=== PATIENT | female | born 1955 | race Caucasian/White ===

== ENCOUNTER 2016-07-28 08:02 | Emergency (ER) | payer OTHER ==
[~2016-07-28] VITALS: Ht 162.6 cm; Wt 56.7 kg
[2016-07-28 08:06] VITALS: BP 163/102
--- NOTE | 2016-07-28 08:58 | ED UPPER/LOWER EXTREMITY COMPL ---
See Addendum History of Present Illness General Chief Complaint: Upper Extremity Injury Stated Complaint: SHOULDER PAIM RT Source: patient Exam Limitations: no limitations Vital Signs & Intake/Output Vital Signs & Intake/Output Vital Signs Date Time Temp Pulse Resp B/P B/P Pulse O2 O2 Flow FiO2 Mean Ox Delivery Rate 07/28 0806 98.0 93 16 163/102 96 Room Air Allergies Coded Allergies: hydromorphone (Severe, SWELLING 07/28/16) morphine (Severe, SWELLING 07/28/16) diazepam (Mild, DEPRESSION 07/28/16) Reconcile Medications Bupropion HCl (Bupropion XL) 300 MG TAB.ER.24H 1 TAB PO QAM DEPRESSION ( Reported) Bupropion HCl (Bupropion XL) 150 MG TAB.ER.24H 1 TAB PO QAM DEPRESSION ( Reported) Oxycodone HCl/Acetaminophen (Percocet 5-325 MG Tablet) 5 MG-325 MG TABLET 1 TAB PO Q6HR PRN PAIN Sertraline HCl 50 MG TABLET 1 TAB PO DAILY MENTAL HEALTH (Reported) Trazodone HCl 50 MG TABLET 1.5 TAB PO QPM SLEEP (Reported) Triage Note: PT STATES SHE DISLOCATED HER RIGHT SHOULDER LAST EVENING. PT STATES SHE TRIPPED OVER HER DOGS TOY AND LANDED ON HER SHOULDER. Triage Nurses Notes Reviewed? yes Onset: Abrupt Duration: day(s): (1) Timing: single episode today Severity: moderate Severity Numbers: 8 Pain/Injury Location: Right: Shoulder. Method of Injury: fall Modifying Factors: Improves With: immobilization. Worsens With: movement. HPI: Patient is a 60-year-old female presenting to the emergency department chief complaint of right shoulder pain after trip and fall last night. Patient reports that she accidentally tripped over her dog's toys and landed directly on the right shoulder. No head injury. No LOC. Denies neck pain or back pain. Pain in the shoulders moderate, 8 on a 10 worse with any range of motion and palpation. Denies taking anything for pain prior to arrival. No numbness or tingling. The pain does not radiate down the arm. Denies any right elbow, right wrist or hand pain. Denies chest pain palpitations shortness of breath no nausea or vomiting fevers or chills. Pain was not improving this morning so she decided to come in for evaluation. (NEVAEH MURGUIA) Past History Travel History Traveled to [place] past 21 day No Medical History Any Pertinent Medical History? see below for history Neurological: NONE EENT: NONE Cardiovascular: NONE Respiratory: NONE Gastrointestinal: NONE Hepatic: NONE Renal: nephrolithiasis, KIDNEY INFECTION Musculoskeletal: R/L WRIST FX Psychiatric: alcohol dependence, depression Endocrine: NONE Blood Disorders: NONE Cancer(s): NONE Tetanus Vaccine: 02/18/15 Surgical History Surgical History: non-contributory Psychosocial History Who do you live with Spouse What is your primary language Hebrew Tobacco Use: Current Daily Use Daily Tobacco Use Amount/Type: => 5 Cigarettes daily ETOH Use: denies use Illicit Drug Use: denies illicit drug use Family History Hx Contributory? No (NEVAEH MURGUIA) Review of Systems Review of Systems Constitutional: Reports: no symptoms. Comments Review of systems: See HPI, All other systems negative. Constitutional, no chills fever or weight loss HEENT: No visual changes no sore throat no congestion Cardiovascular: No chest pain ,palpitation Skin, no jaundice no rashes Respiratory: No dyspnea cough sputum or hemoptysis GI: No nausea no vomiting Muscle skeletal: no back pain, no neck pain, Neurologic: No numbness no confusion, no headache Psych: No stress anxiety Immunology: No splenectomy or history of AIDS (NEVAEH MURGUIA) Physical Exam Physical Exam General Appearance: well developed/nourished, no apparent distress, alert, awake , comfortable Comments: Well-developed well-nourished person in no acute distress HEENT: Nose is atraumatic. Neck: Supple, no C-spine tenderness. Full range of motion. Back: Nontender,Full range of motion Cardiovascular: Regular rate and rhythms no murmurs rubs or gallops, normal JVP Respiratory: Chest nontender. No respiratory distress.breath sounds clear to auscultation bilaterally Extremity: Tender to palpation over the anterior posterior aspect of the right shoulder, significant limited range of motion of right upper extremity secondary to pain. Pain at approximately 15 of right shoulder abduction. Pain to palpation of the right proximal humerus. No clavicle pain bilaterally. Full range of motion of right wrist, hand, elbow. [employer] Operator strength is equal and symmetric bilaterally. Radial pulses are 2+ bilaterally. Neuro: Alert oriented x3, motor sensory normal and upper joints bilaterally. Skin: No appreciable rash on exposed skin, skin is warm and dry. Psych: Mood and affect is normal, memory and judgment is normal. (NEVAEH MURGUIA) Progress Differential Diagnosis: contusion, dislocation, fracture, sprain, tendon injury Plan of Care: Orders Procedure Date/time Status Durable Medical Equipment 07/29 931 Active Diagnostic Imaging: Viewed by Me: Radiology Read. Discussed w/RAD: Radiology Read. Radiology Impression: PROXIMAL HUMERAL FRACTURE, DISPLACED, HUMERUS: PROXIMAL HUMERAL FX Comments: Spoke with Alyssa Calloway MD, patient will follow-up with orthopedic in the office this week. Sent home in sling. (NEVAEH MURGUIA) Departure Departure Time of Disposition: 901 Disposition: HOME OR SELF CARE Condition: Stable Clinical Impression Primary Impression: Proximal humeral fracture Qualifiers: Encounter type: initial encounter Fracture type: closed Fracture morphology: unspecified fracture morphology Laterality: right Qualified Code: S42.201A - Unspecified fracture of upper end of right humerus, initial encounter for closed fracture Referrals: HOWARD BROWN APRN (PCP/Family) ROSA ISELA WONG,ALYSSA Additional Instructions: Follow-up with orthopedics call tomorrow to make an appointment. Wear sling for comfort. Apply ice to affected area. Return for worsening symptoms or concerns. Departure Forms: Customer Survey General Discharge Information Prescriptions: Current Visit Scripts Oxycodone HCl/Acetaminophen (Percocet 5-325 MG Tablet) 1 TAB PO Q6HR PRN PAIN #12 TAB (NEVAEH MURGUIA) PA/CASE MAKER Co-Sign Statement Statement: ED Attending supervision documentation- [] I saw and evaluated the patient. I have also reviewed all the pertinent lab results and diagnostic results. I agree with the findings and the plan of care as documented in the PA's/CASE MAKER's documentation. [X] I have reviewed the ED Record and agree with the PA's/CASE MAKER's documentation. [] Additions or exceptions (if any) to the PAs/CASE MAKER's note and plan are summarized below: [] (BRIANDA WONG,BINDU Mcgowan) Procedures Splinting Location: RIGHT SHOULDER Manual Alignment Performed: No Pre-Made Type: SLING Splint: SLING/SHOULDER IMMOBILIZER Splint Applied By: splint applied by other (NURSING) Pre-Proc Neuro Vasc Exam: normal Post-Proc Neuro Vasc Exam: normal Progress: Patient tolerated procedure well. (KELSIE FINNEGAN,NEVAEH)
[2016-07-28] MEDS ORDERED: PERCOCET 5-3251 EACH PO (09:10)
[2016-07-28] MEDS ORDERED: SERTRALINE HCL50 MG PO (09:33)
[2016-07-28] MEDS ORDERED: TRAZODONE HCL50 M1 PO (09:34)
[2016-07-28] MEDS ORDERED: BUPROPION XL300 M1 PO (09:34)
[2016-07-28] MEDS ORDERED: BUPROPION XL150 MG PO (09:35)
--- NOTE | 2016-07-28 10:23 | RADIOLOGY REPORT ---
EXAMINATION: XR HUMERUS, RIGHT XR SHOULDER, RIGHT CLINICAL INFORMATION: History of recent fall with inability to move the arm. Evaluate for fracture and dislocation. COMPARISON: None TECHNIQUE: Right shoulder, 3 views Right humerus, 2 views FINDINGS: Right shoulder: Bone density appears diffusely decreased. The clavicle and acromioclavicular joint are intact. There is a fracture of the humeral neck and greater tuberosity with > 1 cm of cortical offset at the medial humeral head-neck junction, slight medial rotation of the head fragment, and superolateral migration of the humeral shaft fragment. The comminuted greater tuberosity fragment is posterolaterally displaced by approximately 0.6 cm. The scapula is unremarkable. There is multilevel degenerative arthropathy of the visualized lower cervical spine. The examined right lung is normal. Right humerus: No additional findings within the right humerus. Bones have normal alignment at the elbow. IMPRESSION: Comminuted fracture of the proximal right humerus involves the humeral neck and greater tuberosity. This represents a Neer two part fracture.
== END 2016-07-28 10:27 ==
LOC: ERH 08:02
DX: S42.201A Unspecified fracture of upper end of right humerus, initial encounter for closed fracture (principal); W18.09XA Striking against other object with subsequent fall, initial encounter; Y93.01 Activity, walking, marching and hiking; Y92.9 Unspecified place or not applicable
CPT/HCPCS: 73030-RT; 73060-RT

== ENCOUNTER 2017-05-28 14:20 | Emergency (ER) | payer OTHER ==
[~2017-05-28 14:20] MED LIST: BUPROPION XL150 MG PO; BUPROPION XL300 M1 PO; PERCOCET 5-3251 EACH PO; SERTRALINE HCL50 MG PO; TRAZODONE HCL50 M1 PO
--- NOTE | 2017-05-28 14:53 | ED GENERAL ADULT ---
History of Present Illness General Chief Complaint: Syncope and Near-Syncope Stated Complaint: BIBA SYNCOPE - ETOH Source: patient, EMS Exam Limitations: poor historian, intoxication Vital Signs & Intake/Output Vital Signs & Intake/Output Vital Signs Date Time Temp Pulse Resp B/P B/P Pulse O2 O2 Flow FiO2 Mean Ox Delivery Rate 05/286 98.5 92 18 103/84 95 Room Air 05/28 2038 97.9 78 20 121/71 93 Room Air 05/28 1639 74 18 101/64 97 Room Air 05/28 1434 97.8 77 20 112/70 97 Room Air Allergies Coded Allergies: hydromorphone (Severe, SWELLING 07/28/16) morphine (Severe, SWELLING 07/28/16) diazepam (Mild, DEPRESSION 07/28/16) Reconcile Medications Bupropion HCl (Bupropion XL) 300 MG TAB.ER.24H 1 TAB PO QAM DEPRESSION ( Reported) Bupropion HCl (Bupropion XL) 150 MG TAB.ER.24H 1 TAB PO QAM DEPRESSION ( Reported) Oxycodone HCl/Acetaminophen (Percocet 5-325 MG Tablet) 5 MG-325 MG TABLET 1 TAB PO Q6HR PRN PAIN Sertraline HCl 50 MG TABLET 1 TAB PO DAILY MENTAL HEALTH (Reported) Trazodone HCl 50 MG TABLET 1.5 TAB PO QPM SLEEP (Reported) Triage Note: [facility] AFTER BEING FOUND "STUMBLING AROUND" IN THE STORE. PT ARRIVES TO ED INTOXICATED WITH SMELL OF ETOH ON BREATH. PTS BP INITIALLY FOR EMS WAS 80 SYSTOLIC, AND MEDIC ADMINISTERED 500ML BOLUS NS AND BP NOW 101/70. PT ASKING TO GO HOME NOW, STATES SHE DOES NOT HAVE A RIDE HOME. Triage Nurses Notes Reviewed? yes Onset: Abrupt Duration: unknown duration Timing: recent history HPI: 05/28/17 3:30 PM 61-year-old female was brought into the emergency department by ambulance for being found stumbling intoxicated at a grocery store. She denies any injuries or complaints. The onset of the symptoms was abrupt, the duration is uncertain, the severity is significant as she was required to come to the emergency department for care. She has some mild slurred speech but is otherwise oriented 3. She says she wants to go home and has no interest in speaking to crisis. She denies any intent to injure herself. No interest in detox. (Rohan Fried DO) Past History Travel History Traveled to [place] past 21 day No Medical History Any Pertinent Medical History? see below for history Neurological: NONE EENT: NONE Cardiovascular: NONE Respiratory: NONE Gastrointestinal: NONE Hepatic: NONE Renal: nephrolithiasis, KIDNEY INFECTION Musculoskeletal: R/L WRIST FX Psychiatric: alcohol dependence, depression Endocrine: NONE Blood Disorders: NONE Cancer(s): NONE Tetanus Vaccine: 02/18/15 Surgical History Surgical History: non-contributory Psychosocial History Who do you live with Spouse What is your primary language German Tobacco Use: Current Daily Use Daily Tobacco Use Amount/Type: => 5 Cigarettes daily Family History Hx Contributory? No (Rohan Fried DO) Review of Systems Review of Systems Constitutional: Denies: fever. EENTM: Reports: no symptoms. Respiratory: Reports: no symptoms. Cardiovascular: Reports: no symptoms. GI: Reports: no symptoms. Genitourinary: Reports: no symptoms. Musculoskeletal: Reports: no symptoms. Skin: Reports: no symptoms. Neurological/Psychological: Reports: see HPI. Hematologic/Endocrine: Reports: no symptoms. Immunologic/Allergic: Reports: no symptoms. (Rohan Fried DO) Physical Exam Physical Exam General Appearance: awake, anxious, moderate distress, intoxicated Head: atraumatic, normal appearance Eyes: Bilateral: normal appearance, PERRL, EOMI. Ears, Nose, Throat: normal pharynx, normal ENT inspection Neck: normal inspection, supple, full range of motion Respiratory: normal breath sounds, chest non-tender, no respiratory distress Cardiovascular: regular rate/rhythm Peripheral Pulses: 4+ radial (R), 4+ radial (L) Gastrointestinal: non-tender Back: normal range of motion Extremities: no edema Neurologic/Psych: awake, alert, ataxic Skin: intact, normal color, warm/dry Core Measures ACS in differential dx? No CVA/TIA Diagnosis: No Sepsis Present: No Sepsis Focused Exam Completed? No (Rohan Fried DO) Progress Differential Diagnoses I considered the following diagnoses in my evaluation of the patient: [Alcohol intoxication, head injury, electrolyte derangement, substance abuse] Plan of Care: Orders Procedure Date/time Status Patient Safety Monitor 05/28 1740 Active URINE DRUG SCREEN FOR ER ONLY 05/28 1544 Active ETHANOL 05/28 1544 Complete COMPREHENSIVE METABOLIC PANEL 05/28 1544 Complete CBC WITHOUT DIFFERENTIAL 05/28 1544 Complete Laboratory Tests 05/28/17 1605: Anion Gap 17 H, Estimated GFR 56 L, BUN/Creatinine Ratio 16.0, Glucose 72, Calcium 8.6, Total Bilirubin 0.4, AST 25, ALT 26, Alkaline Phosphatase 70, Total Protein 7.0, Albumin 4.1, Globulin 2.9, Albumin/Globulin Ratio 1.4, CBC w Diff NO MAN DIFF REQ, RBC 4.02 L, MCV 100.4 H, MCH 33.2 H, MCHC 33.1, RDW 15.7 H, MPV 6.7 L, Gran % 47.8, Lymphocytes % 37.7, Monocytes % 12.0 H, Eosinophils % 2.1, Basophils % 0.4, Absolute Granulocytes 3.1, Absolute Lymphocytes 2.5, Absolute Monocytes 0.8 H, Absolute Eosinophils 0.1, Absolute Basophils 0, Serum Alcohol 364.0 Pre-Hospital EKG: none Initial ED EKG: none (Rohan Fried DO) Departure Departure Disposition: STILL A PATIENT Condition: Stable Clinical Impression Primary Impression: Alcohol abuse Referrals: Ayaka Kelley APRN (PCP/Family) Departure Forms: Customer Survey General Discharge Information Comments 05/28/17 The patient was reevaluated. She was awake alert and oriented 3. She was still somewhat ataxic. She again inclined to speak with crisis. She was signed out to Dr. Steel. She may be discharged when sober. There is no history of trauma. Her alcohol level was greater than 300 on initial evaluation. (Rohan Fried DO) Departure Comments at discharge, pt awake and alert, ambulates well. discharge breathylized etoh 0.063. (Damián WONG,Jackson Tran) Critical Care Note Critical Care Note Critical Care Time: 30-74 min (Rohan Fried DO)
[2017-05-28 16:26] LABS: ABSOLUTE BASOPHIL COUNT 0 /CUMM (0.0-0.2); ABSOLUTE EOSINOPHIL COUNT 0.1 /CUMM (0.0-0.7); ABSOLUTE GRANULOCYTE CT 3.1 /CUMM (1.4-6.5); ABSOLUTE LYMPH COUNT 2.5 /CUMM (1.2-3.4); ABSOLUTE MONOCYTE COUNT 0.8 /CUMM (0.10-0.60); BASOPHIL % 0.4 % (0.0-2.0); EOSINOPHIL % 2.1 % (0-5); GRANULOCYTE % 47.8 % (42.2-75.2); HEMATOCRIT 40.3 % (37-47); MEAN CORPUSCULAR HGB 33.2 PG (27.0-31.0); MEAN CORPUSCULAR HGB CONC 33.1 G/DL (33.0-37.0); MEAN CORPUSCULAR VOLUME 100.4 FL (81.0-99.0); MEAN PLATELET VOLUME 6.7 FL (7.4-10.4); PLATELET COUNT 366 /CUMM (130-400); RBC DISTRIBUTION WIDTH 15.7 % (11.5-14.5); RED BLOOD CELL CT 4.02 /CUMM (4.20-5.40); WHITE BLOOD CELL COUNT 6.5 /CUMM (4.8-10.8)
[2017-05-28 22:56] VITALS: BP 103/84
== END 2017-05-29 06:16 ==
LOC: ERH 14:20
PROVIDERS: Emergency Medicine
DX: F10.10 Alcohol abuse, uncomplicated (principal); R55 Syncope and collapse; F32.9 Major depressive disorder, single episode, unspecified; F17.210 Nicotine dependence, cigarettes, uncomplicated
CPT/HCPCS: 80307; G0480